=== PATIENT | female | born 1990 | race Caucasian/White ===

== ENCOUNTER 2019-02-07 11:01 | Emergency (ER) | payer OTHER ==
--- NOTE | 2019-02-07 11:28 | ER Document Report ---
ED Medical Screen (RME) - General Chief Complaint: Abdominal Pain Stated Complaint: ABDOMINAL PAIN Time Seen by Provider: 02/07/19 11:23 Primary Care Provider: OLIVER HARRIS NP [Primary Care Provider] - Follow up as needed Mode of Arrival: Ambulatory Information source: Patient Notes: 28-year-old female presented to ED for complaint of abdominal and back pain for the last week. She states she has been very bloated having a lot of pain in the upper abdomen going through to the back and in the pelvic area. She states she was told last week by her primary care that she had a very large ovarian cyst she is also treated for UTI and is on an antibiotic that starts with a but it is in the car. She does have a lot of abdominal tenderness. She states she has been very nauseated no vomiting. She states the pain in her abdomen and back has been worse for the last 1-2 days. Mother states that there is a large family history of gallbladder problems. Patient is alert oriented respirations regular and unlabored speaking in full sentences. I have greeted and performed a rapid initial assessment of this patient. A comprehensive ED assessment and evaluation of the patient, analysis of test results and completion of medical decision making process will be conducted by an additional ED providers. TRAVEL OUTSIDE OF THE [place] IN LAST 30 DAYS: No - Related Data Allergies/Adverse Reactions: No Known Allergies Allergy (Verified 02/07/19 11:06) Physical Exam - Vital signs Vitals: Temp Pulse Resp BP Pulse Ox 97.9 F 86 16 101/67 100 02/07/19 11:11 02/07/19 11:11 02/07/19 11:11 02/07/19 11:11 02/07/19 11:11 Course - Vital Signs Vital signs: Temp Pulse Resp BP Pulse Ox 97.9 F 86 16 101/67 100 02/07/19 11:11 02/07/19 11:11 02/07/19 11:11 02/07/19 11:11 02/07/19 11:11 Doctor's Discharge - Discharge Referrals: OLIVER HARRIS NP [Primary Care Provider] - Follow up as needed
[2019-02-07 12:25] LABS: ABSOLUTE LYMPHOCYTES (AUTO) 1.4 10^3/uL (0.5-4.7); ABSOLUTE MONOCYTES (AUTO) 0.6 10^3/uL (0.1-1.4); BASOPHILS % (AUTO) 0.4 % (0-2); EOSINOPHILS % (AUTO) 0.6 % (0-6); HEMATOCRIT 33.5 % (36.0-47.0); HEMOGLOBIN 11.6 g/dL (12.0-15.5); LYMPHOCYTES % (AUTO) 23.5 % (13-45); MEAN CORPUSCULAR HEMOGLOBIN 32.1 pg (27.0-33.4); MEAN CORPUSCULAR HGB CONC 34.6 g/dL (32.0-36.0); MEAN CORPUSCULAR VOLUME 93 fl (80-97); MONOCYTES % (AUTO) 9.8 % (3-13); PLATELET COUNT 343 10^3/uL (150-450); RED BLOOD COUNT 3.62 10^6/uL (3.72-5.28); RED CELL DISTRIBUTION WIDTH 12.5 % (11.5-14.0); SEGMENTED NEUTROPHILS % (AUTO) 65.7 % (42-78); TOTAL CELLS COUNTED % (AUTO) 100 %; WHITE BLOOD COUNT 6.1 10^3/uL (4.0-10.5)
[2019-02-07 12:43] LABS: APPEARANCE,URINE CLEAR; BILIRUBIN,URINE NEGATIVE (NEGATIVE); COLOR,URINE YELLOW; GLUCOSE, URINE NEGATIVE (NEGATIVE); KETONES,URINE TRACE mg/dL (NEGATIVE); LEUKOCYTE ESTERASE,URINE LARGE (NEGATIVE); NITRITE,URINE NEGATIVE (NEGATIVE); PROTEIN,URINE NEGATIVE (NEGATIVE); URINE SPECIFIC GRAVITY 1.011; UROBILINOGEN,URINE NEGATIVE mg/dL (<2.0)
[2019-02-07 12:45] LABS: ALANINE AMINOTRANSFERASE 42 U/L (9-52); ALBUMIN 3.7 g/dL (3.5-5.0); ALKALINE PHOSPHATASE 63 U/L (38-126); ANION GAP 10 (5-19); ASPARTATE AMINO TRANSFERASE 50 U/L (14-36); BILIRUBIN,DIRECT 0.3 mg/dL (0.0-0.4); BILIRUBIN,TOTAL 0.7 mg/dL (0.2-1.3); BLOOD UREA NITROGEN 6 mg/dL (7-20); CALCIUM 9.1 mg/dL (8.4-10.2); CARBON DIOXIDE 26 mmol/L (22-30); CHLORIDE 102 mmol/L (98-107); GLUCOSE 92 mg/dL (75-110); LIPASE 58.7 U/L (23-300); POTASSIUM 4.2 mmol/L (3.6-5.0); SODIUM 138.2 mmol/L (137-145); TOTAL PROTEIN 7.3 g/dL (6.3-8.2)
--- NOTE | 2019-02-07 13:25 | RADIOLOGY REPORT (SQ) ---
EXAM DESCRIPTION: U/S ABDOMEN LIMITED W/O DOP COMPLETED DATE/TIME: 02/07/2019 12:55 pm REASON FOR STUDY: upper abdominal pain COMPARISON: None. TECHNIQUE: Dynamic and static grayscale images acquired of the abdomen and recorded on PACS. Additio nal selected color Doppler and spectral images recorded. LIMITATIONS: None. FINDINGS: PANCREAS: No masses. Visualized pancreatic duct normal caliber. LIVER: No masses. Echotexture normal. LIVER VASCULATURE: Normal directional flow of the main portal vein and hepatic veins. GALLBLADDER: No stones. Normal wall thickness. No pericholecystic fluid. ULTRASOUND-DETECTED SALAS'S SIGN: Negative. INTRAHEPATIC DUCTS AND COMMON DUCT: CBD and intrahepatic ducts normal caliber. No filling defects. INFERIOR VENA CAVA: Normal flow. AORTA: No aneurysm. RIGHT KIDNEY: Normal size. Normal echogenicity. No solid or suspicious masses. No hydronephrosis. No calcifications. PERITONEAL AND RIGHT PLEURAL SPACE: No ascites or effusions. OTHER: No other significant findings. IMPRESSION: NORMAL RIGHT UPPER QUADRANT ULTRASOUND. TECHNICAL DOCUMENTATION: JOB ID: [id number] [employer]- All Rights Reserved Reading location - IP/workstation name: [email or web address]
--- NOTE | 2019-02-07 13:30 | RADIOLOGY REPORT (SQ) ---
EXAM DESCRIPTION: U/S NON-OB PELVIS TV W/O DOP COMPLETED DATE/TIME: 02/07/2019 12:55 pm REASON FOR STUDY: pelvic pain hx of large ovarian cyst COMPARISON: None. TECHNIQUE: Dynamic and static grayscale images acquired of the pelvis via transvaginal approach and recorded on PACS. Additional selected color Doppler and spectral images recorded. LIMITATIONS: None. FINDINGS: UTERUS: Contour normal. No mass. ENDOMETRIAL STRIPE: IUD present. CERVIX: Fluid in the cervix. RIGHT OVARY AND DOPPLER: There is a a 3.4 x 2.4 x 2.3 cm cyst present. Within the cyst is some solid tissue without blood flow. Uncertain if this is debris. There is note made that the patient has lacy d prior documentation of a cyst. No studies available. LEFT OVARY AND DOPPLER: Normal size. No worrisome masses. Normal arterial vascular flow without evide nce for torsion. FREE FLUID: None noted. OTHER: No other significant finding. MEASUREMENTS: UTERUS: 6.3 cm ENDOMETRIAL STRIPE: 1.3 mm RIGHT OVARY: 4.2 cm LEFT OVARY: 2.7 cm IMPRESSION: 3.4 cm right ovarian cysts with small amount internal solid tissue without blood flow. Uncertain if this is debris. Prior available studies necessary to determine the significance. COMMENT: Followup of asymptomatic indeterminate ovarian cysts detected by ultrasound in PREMENOPAUS [place] patients Nodule in a cyst: *No blood flow in nodule: MRI or surgical consultation *Blood flow in nodule: surgical consultation Note: If cyst is clinically symptomatic or otherwise concerning, other followup may be warranted. Based on recommendations of the Society for Radiologists in Ultrasound Consensus Conference Statement 2010 on management of asymptomatic ovarian and other adnexal cysts imaged at ultrasound. TECHNICAL DOCUMENTATION: JOB ID: [id number] [employer]- All Rights Reserved Rev Reading location - IP/workstation name: [email or web address]
[2019-02-07] MEDS ORDERED: METOCLOPRAMIDE HCL ORAL SOLN 10 MG/10 ML UDCUP PO ONE (13:42)
[2019-02-07] MEDS ORDERED: LIDOCAINE 2% VISCOUS SOLN 20 ML UDCUP PO ONE (13:42)
[2019-02-07] MEDS ORDERED: MAG HYDROX/AL HYDROX/SIMETH SUSP 30 ML UDCUP PO ONE (13:42)
--- NOTE | 2019-02-07 13:48 | ER Document Report ---
ED General - General Chief Complaint: Abdominal Pain Stated Complaint: ABDOMINAL PAIN Time Seen by Provider: 02/07/19 11:23 Primary Care Provider: OLIVER HARRIS NP [Primary Care Provider] - Follow up as needed Mode of Arrival: Ambulatory TRAVEL OUTSIDE OF THE [place] IN LAST 30 DAYS: No - HPI Notes: Patient is a 28-year-old female with a history of ovarian cyst who presents the emergency department complaining of epigastric and right upper quadrant pain with associated bloating over the past week. Patient states that she does continue to have pain in her right lower pelvic area from an ovarian cyst that was diagnosed on Saturday as well as being treated for urinary infection currently. Patient states that she has not been eating or drinking as much lately, but is still able to without difficulty. Patient states that food does increase her discomfort in her stomach. She is having normal formed but soft bowel movements. Denies drug allergies. No surgical history to her abdomen. No other significant past medical history. She was evaluated for the same complaints by her PCM a few days ago where they diagnosed a urinary infection in the ovarian cyst. Patient is questioning issues with her gallbladder which is what prompted her to come here today. Denies any headache, fever, neck pain, URI, sore throat, chest pain, palpitations, syncope, cough, shortness of breath, wheeze, dyspnea, nausea/vomiting/diarrhea, urinary retention, dysuria, hematuria, loss of control of bowel or bladder, numbness/tingling, saddle anesthesia, muscle paralysis/weakness, or rash. - Related Data Allergies/Adverse Reactions: No Known Allergies Allergy (Verified 02/07/19 11:06) Past Medical History - General Information source: Patient - Social History Smoking Status: Current Every Day Smoker Chew tobacco use (# tins/day): No Frequency of alcohol use: Social Drug Abuse: None Family History: Reviewed & Not Pertinent Patient has suicidal ideation: No Patient has homicidal ideation: No Renal/ Medical History: Denies: Hx Peritoneal Dialysis Review of Systems - Review of Systems -: Yes All other systems reviewed and negative Physical Exam - Vital signs Vitals: Temp Pulse Resp BP Pulse Ox 97.9 F 86 16 101/67 100 02/07/19 11:11 02/07/19 11:11 02/07/19 11:11 02/07/19 11:11 02/07/19 11:11 - Notes Notes: PHYSICAL EXAMINATION: GENERAL: Well-appearing, well-nourished and in no acute distress. HEAD: Atraumatic, normocephalic. EYES: Pupils equal round and reactive to light, extraocular movements intact, sclera anicteric, conjunctiva are normal. ENT: Nares patent and without discharge. oropharynx clear without exudates. No tonsilar hypertrophy or erythema. Moist mucous membranes. NECK: Normal range of motion, supple without lymphadenopathy LUNGS: Breath sounds clear to auscultation bilaterally and equal. No wheezes rales or rhonchi. HEART: Regular rate and rhythm without murmurs, rubs, gallops. ABDOMEN: Soft, nondistended abdomen. No guarding, no rebound. Normal bowel sounds present. No CVA tenderness bilaterally. + mild tenderness epigastrum. Non-tender to lower pelvic. No tenderness at McBurney. ?Roberts. Musculoskeletal: FROM to passive/active. Strength 5+/5. Extremities: No cyanosis, clubbing, or edema b/l. Peripheral pulses 2+. Capillary refill less than 3 seconds. NEUROLOGICAL: Normal speech, normal gait. PSYCH: Normal mood, normal affect. SKIN: Warm, Dry, normal turgor, no rashes or lesions noted. Course - Re-evaluation Re-evalutation: 02/07/19 14:39 Patient is an afebrile, well-hydrated, 28-year-old female who presents emergency department with epigastric abdominal pain, suspect possible gastritis versus GERD. Vitals are acceptable without significant tachycardia, tachypnea, or hypoxia. PE is otherwise unremarkable. Patient does have a known ovarian cyst on the right upper side and is currently being treated for UTI. CBC, CMP, lipase, urinalysis, right upper quadrant ultrasound, and transvaginal ultrasound were otherwise unremarkable aside from what was known. Patient was given a GI cocktail which significantly improved symptoms. No further labs or imaging warranted. Low suspicion/risk for acute appendicitis, bowel obstruction, acute cholecystitis, acute cholangitis, perforated diverticulitis, incarcerated hernia, pancreatitis, perforated ulcer, peritonitis, sepsis, pelvic inflammatory disease, ectopic , tubo-ovarian abscess, ovarian torsion, or other systemic emergent condition at this time. Patient is aware that her condition can change from initial presentation and she needs to monitor symptoms closely and seek medical attention if any acute changes. Conservative measures otherwise for symptoms. I will send her home with a perception for Carafate as well as omeprazole. Recheck with your PCM in 2-3 days. Consider consult with a supervisor phosphatic fertilizer. Return to the ED with any worsening/concerning symptoms otherwise as reviewed in discharge. Patient is in agreement. - Vital Signs Vital signs: Temp Pulse Resp BP Pulse Ox 97.9 F 86 16 101/67 100 02/07/19 11:11 02/07/19 11:11 02/07/19 11:11 02/07/19 11:11 02/07/19 11:11 - Laboratory Result Diagrams: 02/07/19 12:10 02/07/19 12:10 Laboratory results interpreted by me: 02/07/19 02/07/19 02/07/19 11:45 12:10 12:10 RBC 3.62 L Hgb 11.6 L Hct 33.5 L BUN 6 L AST 50 H Urine Ketones TRACE H Urine Blood SMALL H Ur Leukocyte Esterase LARGE H Discharge - Discharge Clinical Impression: Epigastric abdominal pain Condition: Stable Disposition: HOME, SELF-CARE Instructions: Evaluation of Upper Abdominal Pain ([facility]) Additional Instructions: Maintain adequate fluid and food intake Avoid caffeine, spices, citrus, alcohol tylenol if needed Monitor for any worsening symptoms Make sure you are staying hydrated enough to urinate and have normal BM's Recheck with your PCM in 2-3 days Consider consult with Gastroenterology for ongoing/worsening symptoms Return to the ED with any worsening symptoms and/or development of fever, headache, chest pain, palpitations, syncope, shortness of breath, trouble breathing, abdominal pain, n/v/d, blood in stool/urine, weakness, or other worsening symptoms that are concerning to you. Prescriptions: Omeprazole 20 mg PO DAILY #30 tablet. Sucralfate [Carafate] 1 gm PO BID #100 ml Forms: Smoking Cessation Education, Return to Work Referrals: OLIVER HARRIS NP [Primary Care Provider] - Follow up as needed ED SHIPMAN MD [ACTIVE STAFF] - Follow up as needed MICA GOOD MD [ACTIVE STAFF] - Follow up as needed
[2019-02-07 14:48] VITALS: BP 115/71
== END 2019-02-07 14:48 | disposition home or self-care (01) ==
LOC: ER 11:01
DX: N39.0 Urinary tract infection, site not specified (principal); N83.201 Unspecified ovarian cyst, right side; R10.13 Epigastric pain; R10.11 Right upper quadrant pain; F17.200 Nicotine dependence, unspecified, uncomplicated
CPT/HCPCS: 99284; 36415; 83690; 84703; 85025; 80053; 81001; 76705; 76830; J3490

== ENCOUNTER 2019-06-02 05:25 | Day surgery (SDC) | payer OTHER ==
[2019-05-28 09:29] LABS: HEMATOCRIT 40.3 % (36.0-47.0); HEMOGLOBIN 13.9 g/dL (12.0-15.5); MEAN CORPUSCULAR HEMOGLOBIN 31.8 pg (27.0-33.4); MEAN CORPUSCULAR HGB CONC 34.5 g/dL (32.0-36.0); MEAN CORPUSCULAR VOLUME 92 fl (80-97); PLATELET COUNT 263 10^3/uL (150-450); RED BLOOD COUNT 4.37 10^6/uL (3.72-5.28); RED CELL DISTRIBUTION WIDTH 13.1 % (11.5-14.0); WHITE BLOOD COUNT 8.3 10^3/uL (4.0-10.5)
[2019-05-28 09:34] LABS: APPEARANCE,URINE CLEAR; BILIRUBIN,URINE NEGATIVE (NEGATIVE); COLOR,URINE YELLOW; GLUCOSE, URINE NEGATIVE (NEGATIVE); KETONES,URINE NEGATIVE (NEGATIVE); LEUKOCYTE ESTERASE,URINE MODERATE (NEGATIVE); NITRITE,URINE NEGATIVE (NEGATIVE); PROTEIN,URINE NEGATIVE (NEGATIVE); URINE SPECIFIC GRAVITY 1.008; UROBILINOGEN,URINE NEGATIVE mg/dL (<2.0)
[2019-05-28 09:35] LABS: ADD MANUAL MICROSCOPIC YES
[2019-05-28 09:45] LABS: RBC,URINE 0-1 /HPF
[2019-05-28 09:46] LABS: BACTERIA,URINE 1+ /HPF
[2019-05-28 09:50] LABS: ALBUMIN 4.6 g/dL (3.5-5.0); ALKALINE PHOSPHATASE 60 U/L (38-126); ANION GAP 11 (5-19); ASPARTATE AMINO TRANSFERASE 31 U/L (14-36); BILIRUBIN,DIRECT 0.1 mg/dL (0.0-0.4); BILIRUBIN,TOTAL 1.9 mg/dL (0.2-1.3); BLOOD UREA NITROGEN 11 mg/dL (7-20); CALCIUM 9.3 mg/dL (8.4-10.2); CARBON DIOXIDE 25 mmol/L (22-30); CHLORIDE 102 mmol/L (98-107); GLUCOSE 89 mg/dL (75-110); POTASSIUM 4.4 mmol/L (3.6-5.0); TOTAL PROTEIN 7.4 g/dL (6.3-8.2)
[~2019-06-02 05:25] MED LIST: CEFAZOLIN 1 GM/D5W RTU 1 GM/50 ML RTUPB IV ONE; CEFAZOLIN 1 GM/D5W RTU 1 GM/50 ML RTUPB IV PRN; LACTATED RINGERS 1000 ML IV PRN; LIDOCAINE 0.5% INJ-PF (5 MG/ML) 50 ML SDV SUBCUT PRN
[2019-06-02] MEDS ORDERED: KETOROLAC TROMETHAMINE 60 MG/2 ML SDV ONE (06:45)
[2019-06-02] MEDS ORDERED: FENTANYL CITRATE INJ/PF 100 MCG/2 ML AMPUL ONE (06:45)
[2019-06-02] MEDS ORDERED: LIDOCAINE 2% INJ-PF (20 MG/ML) 10 ML AMPUL ONE (06:45)
[2019-06-02] MEDS ORDERED: DEXAMETHASONE SOD PHOSPHATE INJ 4 MG/1 ML VIAL ONE (06:46)
[2019-06-02] MEDS ORDERED: MIDAZOLAM 2 MG/2 ML INJ ONE (06:46)
[2019-06-02] MEDS ORDERED: PROPOFOL INJ 200 MG/20 ML VIAL IV ONE (06:46)
[2019-06-02] MEDS ORDERED: ONDANSETRON HCL INJ/PF 4 MG/2 ML SDV ONE (06:46)
[2019-06-02] MEDS ORDERED: ALBUTEROL SULFATE 0.083% NEB 2.5 MG/3 ML AMPUL NEB ONE (07:05)
[2019-06-02] MEDS ORDERED: SILVER SULFADIAZINE 1% CREAM 25 GM ONE (07:10)
[2019-06-02] MEDS ORDERED: LIDOCAINE 1%/EPINEPHRINE INJ 20 ML VIAL ONE (07:11)
[2019-06-02] MEDS ORDERED: MEPERIDINE HCL/PF INJ 25 MG/1 ML DISP.SYRIN IV PRN (08:09)
[2019-06-02] MEDS ORDERED: DIPHENHYDRAMINE HCL 50 MG/ML VIAL IV PRN (08:09)
[2019-06-02] MEDS ORDERED: PROMETHAZINE HCL INJ 25 MG/1 ML VIAL IV PRN ×3 (08:09→09:00)
[2019-06-02] MEDS ORDERED: FENTANYL CITRATE INJ/PF 100 MCG/2 ML AMPUL IV PRN ×3 (08:09)
[2019-06-02] MEDS ORDERED: OXYCODONE-ACETAMINOPHEN 5-325 MG TABLET PO PRN ×2 (08:58→08:59)
[2019-06-02] MEDS ORDERED: OXYCODONE-ACETAMINOPHEN 5-325 MG TABLET ONE (09:05)
[2019-06-02] MEDS ORDERED: PHENYLEPHRINE HCL INJ/PF 10 MG/1 ML SDV ONE (09:49)
[2019-06-02 10:12] VITALS: BP 129/92
--- NOTE | 2019-06-03 19:35 | OPERATIVE REPORT E ---
Operative Report NAME: DAVID THAO : 1990 AGE: 29Y DATE OF SURGERY: 06/02/2019 ROOM: PREOPERATIVE DIAGNOSIS: CONDYLOMA ACUMINATUM OF VULVA. POSTOPERATIVE DIAGNOSIS: CONDYLOMA ACUMINATUM OF VULVA. OPERATION: LASER VAPORIZATION OF CONDYLOMA OF THE VULVA. SURGEON: ERNESTO HARRIS M.D. ANESTHESIA: General. PERTINENT HISTORY/OPERATIVE FINDINGS: This is a 29-year-old female who was known to have condyloma acuminatum of the vulva. We did treat her with podophyllin and trichloracetic acid did not seem to be taking care of the problem; ergo, she decided she wanted to proceed with laser vaporization. At the time of surgery, the vulva showed multiple small condyloma on both the labia majora and labia minora bilaterally. There was no evidence of intravaginal condyloma. The cervix appeared to be normal. The uterus was mid plane. Adnexa negative. PROCEDURE: The patient was brought into the OR, placed on the table in a supine position. Induced under general anesthesia. Following this, she was repositioned in dorsal lithotomy position, prepped and draped in a sterile fashion. We did use wet towels around the vulva to protect the patient, and then using the laser at a setting of 25, we had laser vaporization of the condyloma of the labia minora and majora. This terminated the procedure. Silver sulfadiazine was applied to the vulva area. Anesthesia was stopped. The patient was placed back in the supine position. She was transferred to the recovery room in satisfactory condition. There was negligible blood loss. DICTATING PHYSICIAN: ERNESTO HARRIS M.D. [id number] PHY#: [id number] ID: [id number] JOB#: [id number] ACCT: [id number] cc:ERNESTO HARRIS M.D. >
== END 2019-06-02 10:06 | disposition home or self-care (01) ==
LOC: OROUT 05:25
PROVIDERS: ATTEND Obstetrics & Gynecology
DX: A63.0 Anogenital (venereal) warts (principal); Z79.899 Other long term (current) drug therapy
CPT/HCPCS: 36415; 85027; 81025; 80053; 81001; 56501; J2250; J0690; J1100; J3010; J2370; J2405; J2704; J3490; 940; J1885